=== PATIENT | male | born 1950 | race Caucasian/White ===

== ENCOUNTER 2017-12-22 11:59 | Day surgery (SDC) | payer MEDICARE, BC ==
[~2017-12-22 11:59] MED LIST: Acetaminophen TAB* 325 MG PO PRN; Buffered Lidocaine 0.9% SYRIN* 5 ML/SYR SYRINGE INTRADERM ONE
[2017-12-22] MEDS ORDERED: Midazolam* 1 MG/ML 5 ML VIAL (5 MG) ONE (13:21)
[2017-12-22] MEDS ORDERED: fentaNYL* 50 MCG/ML 2 ML VIAL (100 MCG VIAL) ONE (13:21)
[2017-12-22 14:18] VITALS: BP 125/65
--- NOTE | 2017-12-22 14:44 | OP ---
DATE OF OPERATION: 12/22/2017 - FORMERLY [facility] DATE OF : 1950. SURGEON: Lyle Mcrae M.D. PREOPERATIVE DIAGNOSIS: Cataract right eye. POSTOPERATIVE DIAGNOSIS: Cataract right eye. OPERATIVE PROCEDURE: Extracapsular cataract extraction with intraocular lens implant right eye. DESCRIPTION OF PROCEDURE: The patient was brought to the operating room after being given 1/2% Alcaine with epinephrine drops in the preoperative area. The eye was prepped and draped in the usual sterile fashion. Sterile drape and eyelid speculum were placed. Again, topical 1/2% Alcaine with epinephrine was given. A paracentesis incision was made at the 9 o'clock position with the No.75 blade. Clear cornea incision 2.2 x 2.2-mm was created at the 12 o'clock position starting at the anterior limbus using the 2.2-mm keratome. The anterior chamber was irrigated with 0.4 mL of 1% non-preservative intracameral lidocaine and filled with DisCoVisc. A capsulorrhexis was completed using the cystotome and the Utrata forceps. Hydrodissection was performed with balanced salt solution. The lens nucleus was removed with the Phacoemulsification handpiece without incident. Cortex was removed with the irrigation-aspiration handpiece. The capsular bag was re-inflated using DisCoVisc and an SN60WF 20.5 implant was inserted with the shooter. The irrigation-aspiration handpiece was used to remove all residual DisCoVisc. The eye was refilled with balanced salt solution and the wound checked and found to be watertight. Topical Maxitrol drops were given. [id number]/[facility] #: [id number] [facility]
[2017-12-22] MEDS ORDERED: Neomycin/Polymy/Dex OPTH.SUSP* MAXITROL 0.1% 5 ML ONE (15:01)
[2017-12-22] MEDS ORDERED: Phenylephrine 2.5% OPTH.SOL* 2 ML BTL ONE (15:01)
[2017-12-22] MEDS ORDERED: Povidone Iodine 5% OPTH* 30 ML BTL ONE (15:01)
[2017-12-22] MEDS ORDERED: Ketorolac 0.5% OPHTH (NF) 0.5 % 5 ML BTL ONE (15:01)
[2017-12-22] MEDS ORDERED: Lidocaine 2% EPI 1:200000 MPF*10-20 ML VIAL ONE (15:01)
[2017-12-22] MEDS ORDERED: Proparacaine 0.5% OPHTH.SOL* 15 ML BTL ONE (15:01)
[2017-12-22] MEDS ORDERED: acetaZOLAMIDE TAB* 250 MG ONE (15:01)
[2017-12-22] MEDS ORDERED: Lidocaine 1%* 5 ML VIAL ONE (15:01)
[2017-12-22] MEDS ORDERED: Cyclopentolate 1% OPTH.SOL* 2 ML BTL ONE (15:01)
== END 2017-12-22 14:20 | disposition home or self-care (01) ==
LOC: OREAST 11:59
PROVIDERS: ATTEND Specialist
DX: H25.811 Combined forms of age-related cataract, right eye (principal); H43.393 Other vitreous opacities, bilateral; Z87.891 Personal history of nicotine dependence; I10 Essential (primary) hypertension; J30.89 Other allergic rhinitis; G47.33 Obstructive sleep apnea (adult) (pediatric)
CPT/HCPCS: A9270-GY; J2250; J3010; V2632

== ENCOUNTER 2018-01-28 02:47 | Observation (INO) | payer MEDICARE, BC ==
--- NOTE | 2018-01-28 03:02 | ED ---
HPI Chest Pain - HPI Summary HPI Summary: This pt is a 67 y/o male presenting to [facility] c/o chest pain that woke him up from sleep today. Pt states his chest pain began yesterday at 17:00 and took 3 baby aspirin at 18:00 yesterday. Pt states his pain resolved but then came back again. He notes that today his chest pain woke him up from sleep. Chest pain radiates to left jaw and is described as tight and squeezing. Denies SOB, nausea , vomiting, diaphoresis. Currently pt is chest pain free. Pt reports he had this same pain 2 days ago and was told he might have had a mild heart attack by Urgent Care. His last stress test was done in June 2017. Pt has never had an angiogram. PMHx: prostate, HTN, borderline diabetes, amyloidosis. Pt reports Dr. Bah sent pt to [place] for a heart biopsy after his heart became thicker. 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 Pt takes Diflunisal and green tea leaft extract for amyloidosis. Pt is a former smoker, quit in 1989. - History of Current Complaint Chief Complaint: EDChestPainROMI Hx Obtained From: Patient Onset/Duration: Started Hours Ago, Resolved Timing: Lasting Hours Pain Intensity: 6 Chest Pain Location: Diffuse Chest Pain Radiates: Yes Chest Pain Radiates To:: Jaw Character: Pressure/Squeezing - squeezing, Tightness Aggravating Factor(s): Nothing Alleviating Factor(s): OTC Meds - baby aspirin x3 Associated Signs and Symptoms: Positive: Chest Pain. Negative: Shortness of Breath, Fever, Chills, Diaphoresis, Nausea, Vomiting - Allergy/Home Medications Allergies/Adverse Reactions: Allergies Allergy/AdvReac Type Severity Reaction Status Date / Time environmental allergies Allergy sinus Uncoded 01/28/18 03:24 problem PMH/Surg Hx/FS Hx/Imm Hx Endocrine/Hematology History: Denies: Hx Anticoagulant Therapy, Hx Diabetes - borderline per , Hx Thyroid Disease Cardiovascular History: Reports: Hx Angina - hx of chest pain, Hx Hypercholesterolemia, Hx Hypertension, Other Cardiovascular Problems/Disorders - left ventricle thickened, amyloidosis Denies: Hx Coronary Artery Disease, Hx Myocardial Infarction, Hx Pacemaker/ ICD, Hx Valvular Heart Disease Respiratory History: Reports: Hx Sleep Apnea - NO CPAP MACHINE, Other Respiratory Problems/Disorders - Hx of inhalation of asbestos-pleural thickening Denies: Hx Asthma, Hx Chronic Obstructive Pulmonary Disease (COPD) GI History: Reports: Hx Gastroesophageal Reflux Disease, Other GI Disorders - abd discomfort History: Denies: Hx Dialysis, Hx Renal Disease Musculoskeletal History: Reports: Hx Arthritis, Hx Back Problems, Hx Orthopedic Injury - shoulder, rotator cuff right, Other Musculoskeletal History - osteo arthritis Comment Only: Hx Rheumatoid Arthritis - arthritis unknown type Sensory History: Reports: Hx Cataracts - cas, Hx Contacts or Glasses, Hx Hearing Problem - mild bilaterally, Other Sensory Impairments - [place] Denies: Hx Hearing Aid Opthamlomology History: Reports: Hx Cataracts - cas, Hx Contacts or Glasses, Other Sensory Impairments - [place] Neurological History: Reports: Hx Nerve Disease - neuropathy Denies: Hx Dementia, Hx Seizures Psychiatric History: Denies: Hx Panic Disorder, Hx Substance Abuse - Surgical History Surgery Procedure, Year, and Place: right shoulder repair; carpel tunnel-bilat; LEFT KNEE REPLACEMENT; RIGHT KNEE RESURFACE; GANGLION REMOVAL FROM HAND; CYST REMOVED FROM TAILBONE X 2 Hx Anesthesia Reactions: No Infectious Disease History: No Infectious Disease History: Denies: Hx Hepatitis, Hx Human Immunodeficiency Virus (HIV), Traveled Outside the [place] in Last 30 Days - Family History Known Family History: Positive: Diabetes - father and mother - Social History Alcohol Use: None Substance Use Type: Reports: None Smoking Status (MU): Former Smoker Type: Cigarettes Amount Used/How Often: 2 PPD Length of Time of Smoking/Using Tobacco: 27 YEARS Have You Smoked in the Last Year: No Review of Systems Negative: Fever, Skin Diaphoresis Positive: Chest Pain Negative: Shortness Of Breath Negative: Vomiting, Nausea Skin: Negative Neurological: Negative All Other Systems Reviewed And Are Negative: Yes Physical Exam - Summary Physical Exam Summary: VITAL SIGNS: Reviewed. GENERAL: Patient is a well-developed and nourished male who is lying comfortable in the stretcher. Patient is not in any acute respiratory distress. HEAD AND FACE: No signs of trauma. No ecchymosis, hematomas or skull depressions. No sinus tenderness. EYES: PERRLA, EOMI x 2, No injected conjunctiva, no nystagmus. EARS: Hearing grossly intact. Ear canals and tympanic membranes are within normal limits. MOUTH: Oropharynx within normal limits. NECK: Supple, trachea is midline, no adenopathy, no JVD, no carotid bruit, no c- spine tenderness, neck with full ROM. CHEST: Symmetric, no tenderness at palpation LUNGS: Clear to auscultation bilaterally. No wheezing or crackles. CVS: Regular rate and rhythm, S1 and S2 present, no murmurs or gallops appreciated. ABDOMEN: Soft, non-tender. No signs of distention. No rebound no guarding, and no masses palpated. Bowel sounds are normal. EXTREMITIES: FROM in all major joints, no edema, no cyanosis or clubbing. NEURO: Alert and oriented x 3. No acute neurological deficits. Speech is normal and follows commands. SKIN: Dry and warm Triage Information Reviewed: Yes Vital Signs On Initial Exam: Initial Vitals Temp Pulse Resp BP Pulse Ox 97.4 F 102 20 174/84 97 01/28/18 02:50 01/28/18 02:50 01/28/18 02:50 01/28/18 02:50 01/28/18 02:50 Vital Signs Reviewed: Yes Diagnostics - Vital Signs Vital Signs Temp Pulse Resp BP Pulse Ox 01/28/18 02:50 97.4 F 102 20 174/84 97 - Laboratory Result Diagrams: 01/28/18 03:24 01/28/18 03:24 Lab Statement: Any lab studies that have been ordered have been reviewed, and results considered in the medical decision making process. - Radiology Chest XR Radiology Interpretation Completed By: ED Physician Summary of Radiographic Findings: negative chest XR. Pending official radiology report. - EKG 02:56 Cardiac Rate: NL - at 91 bpm EKG Rhythm: Sinus Rhythm EKG Comparison: No Significant Change - from prior EKG on 03/17/12. Summary of EKG Findings: Nonspecific T wave changes. Chest Pain Course/Dx - Course Assessment/Plan: Pt is a 67 y/o male who presents to the ED with chest pain that woke him up from sleep today. Pt states his chest pain began yesterday at 17:00 and took 3 baby aspirin at 18:00 yesterday. Pt states his pain resolved but then came back again. He notes that today his chest pain woke him up from sleep. Chest pain radiates to left jaw and is described as tight and squeezing. Denies SOB, nausea, vomiting, diaphoresis. Currently pt is chest pain free. Pt reports he had this same pain 2 days ago and was told he might have had a mild heart attack by Urgent Care. His last stress test was done in June 2017. Pt has never had an angiogram. Chest XR is negative as read by ED physician. Pending official radiology report. EKG shows normal sinus rhythm with nonspecific T wave changes, similar to EKG on 03/17/12. Labs show troponin of 0.05. Therefore I discussed the test results with Dr. Velazquez, hospitalist, who accepted the pt for admission. - Diagnoses Provider Diagnoses: Chest pain - Provider Notifications Discussed Care Of Patient With: Montse Velazquez - hospitalist Time Discussed With Above Provider: 04:02 Instructed by Provider To: Admit As Inpatient Discharge - Sign-Out/Discharge Documenting (check all that apply): Patient Departure - Admit to [facility] [place] - Discharge Plan Condition: Stable Disposition: ADMITTED TO [facility] Referrals: Nova Emery, TILER'S ASSISTANT [Primary Care Provider] - - Attestation Statements Document Initiated by Scribe: Yes Documenting Scribe: Brenda Velasco Provider For Whom Scribe is Documenting (Include Credential): Stef Rivera MD Scribe Attestation: IBrenda, scribed for Stef Rivera MD on 01/28/18 at 0436.
[2018-01-28 03:36] LABS: ABS Basophils 0 10^3/ul (0-0.2); ABS Eosinophils 0.1 10^3/ul (0-0.6); ABS Lymphocytes 1.8 10^3/ul (1.0-4.8); ABS Monocytes 0.5 10^3/ul (0-0.8); ABS Neutrophils 3.5 10^3/ul (1.5-7.7); ABS Nucleated RBC 0 10^3/ul; Eosinophil % 2.2 % (0-6); Hematocrit 45 % (42-52); Hemoglobin 15.3 g/dl (14.0-18.0); Mean Corpuscular HGB Conc 34 g/dl (31-36); Mean Corpuscular Hemoglobin 31 pg (27-31); Mean Corpuscular Volume 90 fL (80-94); Mean Platelet Volume 7.6 fL (7.4-10.4); Nucleated Red Blood Cells % 0; Platelet Count 264 10^3/ul (150-450); Red Cell Distribution Width 14 % (10.5-15); White Blood Count 5.9 10^3/ul (3.5-10.8)
[2018-01-28 03:44] LABS: INR 0.94 (0.77-1.02)
[2018-01-28 03:54] LABS: EGFR Non-African American 95.8 (>60)
[2018-01-28] MEDS ORDERED: Ondansetron INJ* 2 MG/ML VIAL IV PRN (04:32)
[2018-01-28] MEDS ORDERED: Acetaminophen TAB* 325 MG PO PRN (04:32)
[2018-01-28] MEDS ORDERED: NS 0.9% 1000 ML* 1,000 ML IV SCH (04:45)
[2018-01-28] MEDS: Heparin VIAL(*) 5000 UNITS/ML VIAL (FIVE THOUSAND) SUBCUT SCH ×2 (07:22→14:52)
--- NOTE | 2018-01-28 08:53 | HP ---
CC: Nova Emery NP; Dr. Sanjay Bah.* HISTORY AND PHYSICAL: DATE OF ADMISSION: 01/28/18 TIME OF EVALUATION: 0500. PRIMARY CARE PHYSICIAN: Nova Emery NP. OPTICAL EFFECTS CAMERA OPERATOR: Dr. Sanjay Bah. CHIEF COMPLAINT: Chest pain. HISTORY OF PRESENT ILLNESS: This is a 67-year-old male with a past medical history of cardiac amyloidosis and coronary artery disease, who presents to the emergency room with chest pain. The patient states he woke up this evening with chest pain. He got up and sat down and it was radiating into this jaw. This concerned him that he came to the emergency room for further evaluation. He states he was having chest pain earlier in the day, off and on at rest, took three aspirin and eventually improved. He has had intermittent squeezing here and there over the past few months. This evening, he was nauseated. No shortness of breath. No diaphoresis. He denies any changes in weight. No lower extremity swelling. He has had increase in burping. He has been rebuilding his shed for physical activity. He states his last stress test he believes was in June 2017 in [place]. No fevers, URI symptoms. Otherwise, review of systems is negative. In the emergency room, the patient had labs and imaging and was referred to the hospitalist service for further evaluation. PAST MEDICAL HISTORY: 1. Cataract. 2. Cardiac amyloidosis, followed by Dr. Bah. 3. BPH. 4. Coronary artery disease. 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 MEDICATIONS: 1. Hydralazine 10 mg p.o. b.i.d. 2. Tamsulosin 0.4 mg p.o. q.p.m. 3. Pregabalin 100 mg p.o. q.p.m. 4. Multivitamin daily. 5. Green tea leaves 500 mg p.o. daily. 6. Lasix 20 mg daily as needed. 7. Caro 60 mg p.o. daily. 8. Dolobid tab 250 mg p.o. b.i.d. 9. Fiber one tab p.o. daily. ALLERGIES: SEASONAL ALLERGIES. FAMILY HISTORY: Mother from old age. Father from an [place], age 66. SOCIAL HISTORY: The patient lives at home with his who is his healthcare proxy. He is retired. He quit smoking in 1989. At that time, he smoked two packs per day for three to four years. No alcohol use or illicit drug use. Code status is full code. REVIEW OF SYSTEMS: A 14-point of review of systems as mentioned in the HPI, otherwise negative. PHYSICAL EXAMINATION GENERAL: No acute distress, resting comfortably. VITAL SIGNS: Temp 97.4, pulse rate 76, respiratory rate 13, oxygen saturation 96 % on room air, blood pressure 132/76. HEENT: Head normocephalic. Pupils are equal and reactive. Anicteric. Oropharynx: Mucous membranes are dry. NECK: Supple. No lymphadenopathy. RESPIRATORY: Diminished breath sounds. No wheeze, rhonchi or rales. CARDIAC: Regular rate and rhythm. Systolic murmur most prominent at the apex. ABDOMEN: Soft, nontender, and nondistended. EXTREMITIES: Trace pretibial edema. NEUROLOGIC: Alert and oriented x3. No gross focal neurological deficits. DIAGNOSTIC STUDIES/LAB DATA: White count 5.9, hemoglobin 15.3, hematocrit 45, platelets 264. INR was 0.94. Sodium 139, potassium 3.6, chloride 106, bicarb 26, BUN 17, creatinine 0.8, glucose 131. Troponin 0.05. BNP is 55. RADIOGRAPHIC DATA: EKG shows sinus rhythm with a rate of 91, with non-specific ST changes. No significant difference from prior EKG. Chest x-ray, some mild prominent interstitial markings. ASSESSMENT: This is a 67-year-old male with a past medical history of coronary artery disease, cardiac amyloidosis, presents to the emergency room with chest pain at rest, radiating to the jaw. 1. Chest pain. Assessment: The patient with non-exertional atypical chest pain. He does have a troponin of 0.05 and known risk factors. Plan: We will admit him to telemetry for observation to the CDU unit, trend his troponin, check a lipid panel, continue him on aspirin and order a nuclear stress test in the morning, consider contacting Cardiology regarding his admission. 2. Chronic medical problems. We will resume his home medication list. We will hold the Lasix in the setting of being n.p.o. 3. FEN: NPO. IV fluids. 4. DVT prophylaxis: The patient scores high risk. We will place him on heparin subcutaneous t.i.d. 5. Code status: Full code. PATIENT TIME: Greater than 45 minutes was spent doing the history and physical , more than half the time was spent in direct patient contact. [id number]/[facility] #: [id number] MELISSA
[2018-01-28] MEDS ORDERED: Calcium Polycarbophil TAB* 625 MG PO SCH (09:00)
[2018-01-28] MEDS ORDERED: Aspirin 81 mg CHEW TAB* 81 MG TAB.CHEW PO SCH (09:00)
[2018-01-28] MEDS ORDERED: Vitamin THERAPEUTIC TAB PO SCH (09:00)
[2018-01-28] MEDS ORDERED: hydrALAZINE TAB* 10 MG PO SCH (09:00)
[2018-01-28] MEDS ORDERED: Spironolactone TAB* 25 MG PO SCH (10:00)
[2018-01-28] MEDS ORDERED: Regadenoson* 0.4 MG/5 ML SYRINGE ONE (14:30)
[2018-01-28] MEDS ORDERED: Furosemide TAB* 20 MG PO ONE (15:07)
[2018-01-28 15:58] VITALS: BP 155/77
[2018-01-28] MEDS ORDERED: Pregabalin CAP(*) 100 MG PO SCH (18:00)
[2018-01-28] MEDS ORDERED: Tamsulosin CAP* 0.4 MG PO SCH (18:00)
--- NOTE | 2018-01-29 12:29 | DS ---
CC: Nova Emery NP; Dr. 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 The patient had low probability cardiac stress test documented on 01/28/18. SECONDARY DIAGNOSES: 1. History of cardiac amyloidosis, followed by Dr. Bah. 2. Benign prostatic hypertrophy. 3. History of neuropathy, secondary to amyloidosis. 4. History of degenerative disk disease. 5. Hypertension. 6. Osteoarthritis. 7. Obstructive sleep apnea. 8. Gastroesophageal reflux disease. MEDICATIONS AT DISCHARGE: Unchanged from admission and include: 1. Hydralazine 10 mg b.i.d. 2. Tamsulosin 0.4 mg daily. 3. Pregabalin 100 mg daily. 4. Multivitamin 1 tablet daily. 5. Lasix 20 mg daily as needed. The patient was instructed to take one dose after he comes back home tonight. 6. Caro 60 mg daily. 7. Dolobid 250 mg b.i.d. p.r.n. 8. Fiber supplement on a daily basis. 9. Aldactone 50 mg daily. LABORATORY DATA AND STUDIES PERFORMED DURING THE HOSPITAL STAY: The patient's troponin ranged from 0.05 to 0.06. The patient's cardiac stress test was nondiagnostic in the treadmill portion and the nuclear portion was read as "EF of 52% with normal motion, with normal wall thickening, and there was a small reversible defect of the lateral wall towards the apex of the polar maps, which is likely artifactual. There are no definite fixed or reversible perfusion defects." Cardiac stress test was assessed as low risk. HOSPITALIZATION COURSE: Joleen Mclaughlin is a 67-year-old male with a history of cardiac amyloid who presented to the hospital complaining of chest pain. The patient stated that his chest pains had been ongoing for the past 2 years, but had been getting more frequent in the recent several months. They usually occur in the evening when he is sitting still and "not doing that much." Today , he also noted that sometimes that his pain radiated to his left jaw. He came into the ED for evaluation and he was noted to have mildly elevated troponin. In addition to the above mentioned, the patient stated that he must have gained approximately 3 pounds, but he did not take his Lasix yet as recommended by his weapons mechanic due to that he urinates a lot after the Lasix and he did not want to do it. He had a cardiac stress test evaluation which showed no definite defects to suggest ischemia. At this point, I suspect that the patient's symptoms of chest pain are likely related to his LVOT obstruction due to amyloid. I recommended for the patient to take his dose of Lasix after he comes back home tonight and to follow up with Dr. Bah in approximately 1 to 2 weeks. The patient also is recommended to follow up with his primary care provider in approximately 4 to 7 days. [id number]/[facility] #: [id number] MTDPancho
== END 2018-01-28 15:15 | disposition home or self-care (01) ==
LOC: ED 02:47 → MEDTELE 04:32
PROVIDERS: ADMIT Pediatrics; ATTEND Pediatrics
DX: E85.4 Organ-limited amyloidosis (principal); I43 Cardiomyopathy in diseases classified elsewhere; R07.89 Other chest pain; N40.0 Benign prostatic hyperplasia without lower urinary tract symptoms; M51.35 Other intervertebral disc degeneration, thoracolumbar region; I10 Essential (primary) hypertension; M19.90 Unspecified osteoarthritis, unspecified site; G47.33 Obstructive sleep apnea (adult) (pediatric); K21.9 Gastro-esophageal reflux disease without esophagitis; Z79.82 Long term (current) use of aspirin; R73.03 Prediabetes; Z87.891 Personal history of nicotine dependence
CPT/HCPCS: 36415; 71045; 78452; 80053; 80061; 83735; 83880; 84484; 85025; 85610; 85730; 93005; 93017; 96374; 96375; 99284; A9270-GY; A9502; G0378; J1644; J2785

== ENCOUNTER → 2018-12-07 | Day surgery (SDC) | payer MEDICARE, BC ==
[~2018-12-07] MED LIST changes: -Acetaminophen TAB* 325 MG PO PRN; -Buffered Lidocaine 0.9% SYRIN* 5 ML/SYR SYRINGE INTRADERM ONE; +Buffered Lidocaine 1% SYRIN* 1 ML/SYRINGE INTRADERM ONE; +Lactated Ringers 1000 ML Bag* 1,000 ML IV SCH; +Lidocaine 1% w EPI 1:100,000* MDV 20 ML VIAL ONE; +Lidocaine 4% TOPICAL* 50 ML TOP.SOLN ONE; +Midazolam* 1 MG/ML 2 ML VIAL (2 MG) ONE; +Naloxone* 0.4 MG/ML 1 ML VIAL IV PRN; +Oxymetazoline 0.05% NASAL SPR* 15 ML BTL ONE; +Propofol* 10 MG/ML 20 ML BTL ONE; +fentaNYL* 50 MCG/ML 2 ML VIAL (100 MCG VIAL) ONE
[2018-12-07 08:56] VITALS: BP 113/69
--- NOTE | 2018-12-07 09:26 | OP ---
DATE OF OPERATION: 12/07/18 - [facility] DATE OF : [birth year] SURGEON: Sanjay Trevino MD DENIER CONTROL OPERATOR: None. ANESTHESIA: Local MAC. PRE-OP DIAGNOSIS: Bilateral inferior turbinate hypertrophy. POST-OP DIAGNOSIS: Bilateral inferior turbinate hypertrophy. OPERATIVE PROCEDURE: Outfracture and cautery of the inferior turbinates. ESTIMATED BLOOD LOSS: Negligible. FINDINGS: Bilateral inferior turbinate hypertrophy. DESCRIPTION OF PROCEDURE: This is a 68-year-old male with longstanding nasal airway obstruction refractory to medical management, who has had particularly difficulty interfacing with his CPAP. The decision was made to proceed with bilateral inferior turbinate reduction. The patient was brought to the operating room. Sedation was assured by the anesthesiologist. Pledgets with Afrin and 4% lidocaine were placed into each nasal cavity. Once adequate time had been allotted for vasoconstriction, the inferior turbinates were each infiltrated with 1% lidocaine with 1:100,000 epinephrine; total of approximately 8 cc was used. The turbinates were then infractured. Multiple passes were made through the submucosa of each turbinate with the Elmed bipolar device. The turbinates were then outfractured. There was normal bleeding from the procedure. A drip pad was applied. The patient was then allowed to arise from sedation and delivered to the PACU in stable condition. [id number]/[facility] #: [id number] MTDD
== END | disposition home or self-care (01) ==
LOC: OR 05:42
PROVIDERS: ATTEND Otolaryngology
DX: J34.3 Hypertrophy of nasal turbinates (principal); G47.33 Obstructive sleep apnea (adult) (pediatric); G62.9 Polyneuropathy, unspecified; E85.9 Amyloidosis, unspecified; I42.9 Cardiomyopathy, unspecified; M19.90 Unspecified osteoarthritis, unspecified site; I10 Essential (primary) hypertension
CPT/HCPCS: A9270-GY; J2250; J2704; J3010

== ENCOUNTER 2023-10-04 10:02 | Observation (INO) ==
[~2023-10-04 10:02] MED LIST changes: -Buffered Lidocaine 1% SYRIN* 1 ML/SYRINGE INTRADERM ONE; -Lactated Ringers 1000 ML Bag* 1,000 ML IV SCH; -Lidocaine 1% w EPI 1:100,000* MDV 20 ML VIAL ONE; -Lidocaine 4% TOPICAL* 50 ML TOP.SOLN ONE; -Midazolam* 1 MG/ML 2 ML VIAL (2 MG) ONE; +Naloxone 0.4 mg VIAL 0.4 mg/ml 1 ml VIAL IV PRN; -Naloxone* 0.4 MG/ML 1 ML VIAL IV PRN; +Ondansetron 4 mg VIAL 2 MG/ML 2 ml VIAL IV PRN; -Oxymetazoline 0.05% NASAL SPR* 15 ML BTL ONE; -Propofol* 10 MG/ML 20 ML BTL ONE; -fentaNYL* 50 MCG/ML 2 ML VIAL (100 MCG VIAL) ONE
[2023-10-04] MEDS ORDERED: Chlorhexidine MOUTHWASH 0.12% 15 ML UDC ONE (11:45)
[2023-10-04] MEDS ORDERED: Buffered Lidocaine 1% SYRIN 1 ml ONE (12:04)
[2023-10-04] MEDS ORDERED: ceFAZolin 2 GM in NS PREMIX 2 GM/100 ML BAG IVPB ONE (12:04)
[2023-10-04 12:28] LABS: Rapid COVID-19 Molecular Undetected (Undetected)
[2023-10-04] MEDS ORDERED: Midazolam 2 mg/2 ml VIAL 1 mg/ml 2 ml VIAL (2 mg) ONE (13:11)
[2023-10-04] MEDS ORDERED: Lidocaine 2% PF 5 ML VIAL ONE (13:11)
[2023-10-04] MEDS ORDERED: Ondansetron 4 mg VIAL 2 MG/ML 2 ml VIAL ONE (13:11)
[2023-10-04] MEDS ORDERED: Rocuronium 50 mg VIAL 10 mg/ml 5 ml VIAL (50 mg) ONE ×2 (13:11→15:47)
[2023-10-04] MEDS ORDERED: fentaNYL 250 mcg/5 ml 50 MCG/ML 5 ml VIAL (250 MCG) ONE (13:11)
[2023-10-04] MEDS ORDERED: Dexamethasone IV 4 MG/ML VIAL 1 ml VIAL ONE (13:11)
[2023-10-04] MEDS ORDERED: Propofol 10 MG/ML 20 ML BTL ONE (13:11)
[2023-10-04] MEDS ORDERED: Thrombin 5,000 UNITS 1 APPLIC KIT - topical use - TOPICAL ONE (14:42)
[2023-10-04] MEDS ORDERED: Lidocaine 1% w EPI 1:100,000 MDV 20 ML VIAL ONE (14:42)
[2023-10-04] MEDS ORDERED: ceFAZolin VIAL VIAL ONE (14:42)
[2023-10-04] MEDS ORDERED: Phenol 1.4% Throat Spray BTL MT PRN (17:22)
[2023-10-04] MEDS ORDERED: Benzocaine/Menthol LOZ MT PRN (17:22)
[2023-10-04] MEDS ORDERED: Calcium Carb (TUMS) 500 mg CHEW TAB PO PRN (17:22)
[2023-10-04] MEDS ORDERED: Morphine 2 MG/ML SYRINGE IV PRN (17:22)
[2023-10-04] MEDS ORDERED: Dextran 70/Hypromellose Tears Eye Drops 15 ml BTL (for Artificials Tears) BOTH EYES PRN (17:22)
[2023-10-04] MEDS ORDERED: HYDROcodone/ACETAMIN 5/325 mg TAB PO PRN (17:22)
[2023-10-04] MEDS ORDERED: fentaNYL 100 mcg/2 ml 50 MCG/ML VIAL ONE (17:32)
[2023-10-04] MEDS: fentaNYL 100 mcg/2 ml 50 MCG/ML VIAL IV PRN (17:33)
[2023-10-04] MEDS: Buffered Lidocaine 1% SYRIN 1 ml INTRADERM ONE (18:16)
[2023-10-04] MEDS: Lactated Ringers 1000 ml BAG 1,000 ML IV SCH (18:16)
[2023-10-04] MEDS: HYDROcodone/ACETAMIN 5/325 mg TAB PO PRN (21:02)
[2023-10-04] MEDS: Ondansetron 4 mg VIAL 2 MG/ML 2 ml VIAL IV PRN (21:03)
[2023-10-05] MEDS: TAFAMIDIS 61 MG PO SCH (09:15)
[2023-10-05 10:02] VITALS: BP 118/45
== END 2023-10-05 13:40 | disposition home or self-care (01) ==
LOC: OR 10:02 → SSU 10:02
PROVIDERS: ADMIT Physician Assistant; ATTEND Neurological Surgery